=== PATIENT | female | born 1935 | race Caucasian/White ===

== ENCOUNTER 2021-08-03 09:21 | Observation (INO) | payer MEDICARE, OTHER ==
[~2021-08-03] VITALS: Ht 162.6 cm; Wt 79.5 kg
[2021-08-03 11:33] LABS: BASOPHILS % (AUTO) 0.4 % (0.0-5.0); EOSINOPHILS % (AUTO) 1.3 % (0.0-8.0); LYMPHOCYTES % (AUTO) 28.3 % (21.0-51.0); MEAN CORPUSCULAR HEMOGLOBIN 28.4 pg (27.0-33.0); MEAN CORPUSCULAR HGB CONC 31.1 g/dL (32.0-36.0); MEAN CORPUSCULAR VOLUME 91.5 fL (79-99); MONOCYTES % (AUTO) 8.4 % (3.0-13.0); NEUTROPHILS % (AUTO) 61.4 % (40.0-77.0); PLATELET COUNT (AUTO) 254 K/uL (130-400); RED BLOOD CELL COUNT(AUTO) 5.03 MIL/uL (4.00-5.50); WHITE BLOOD COUNT (AUTO) 8.4 K/uL (4.8-10.8)
[2021-08-03 11:34] LABS: APPEARANCE,URINE Clear (CLEAR); BILIRUBIN,URINE Negative (NEGATIVE); COLOR,URINE Yellow (YELLOW); GLUCOSE, URINE (UA) Negative (NEGATIVE); KETONES,URINE Negative (NEGATIVE); LEUKOCYTE ESTERASE ,URINE Moderate (NEGATIVE); NITRATE,URINE Negative (NEGATIVE); OCCULT BLOOD,URINE Negative (NEGATIVE); PROTEIN,URINE Negative (NEGATIVE); UROBILINOGEN,URINE 0.2 mg/dL (0.2-1.0)
[2021-08-03 11:51] LABS: CREATININE 0.8 mg/dL (0.5-1.5); POTASSIUM 4.1 mmol/L (3.5-5.1)
[2021-08-03 12:01] LABS: BACTERIA,URINE Rare /HPF (None Seen); RBC,URINE 0-1 /HPF (0-1); SQUAMOUS EPITHELIAL CELL,UR Rare /HPF (0-2); WBC,URINE 0-1 /HPF (0-1)
[2021-08-03 12:03] LABS: PROTHROMBIN TIME 10.9 SEC (9.6-11.6)
[2021-08-03 12:26] VITALS: BP 120/85
[2021-08-03] MEDS ORDERED: ASCO500C18 PO (12:54)
[2021-08-03] MEDS ORDERED: TYLENOL ARTHRITIS PO (12:54)
[2021-08-03] MEDS ORDERED: LATA7.5D OU (12:54)
[2021-08-03] MEDS ORDERED: POTA-202 PO (12:54)
[2021-08-03] MEDS ORDERED: HYDR12.54 PO (12:54)
[2021-08-03] MEDS ORDERED: CALC1CAP22 PO (12:54)
[2021-08-03] MEDS ORDERED: OMEP40CA21 PO (12:54)
[2021-08-03] MEDS ORDERED: CHOL200013 PO (12:54)
[2021-08-03] MEDS ORDERED: VITAMIN B12 PO (12:54)
[2021-08-03] MEDS ORDERED: PRAV40TA3 PO (12:54)
[2021-08-06] VITALS (18 sets, daily range): BP systolic 123–154; BP diastolic 52–94
[2021-08-06] MEDS ORDERED: CEFAZOLIN SODIUM 1 GM VIAL ONE ×3 (10:00→20:17)
[2021-08-06] MEDS ORDERED: LACTATED RINGERS 1000ML 1,000 ML IV ONE (10:01)
[2021-08-06] MEDS: CEFAZOLIN SODIUM 2 GM VIAL IV SCH ×3 (10:53→18:19)
[2021-08-06] MEDS ORDERED: SUCCINYLCHOLINE CHLORIDE 20 MG/ML 10 ML VIAL ONE (11:54)
[2021-08-06] MEDS ORDERED: SUCCINYLCHOLINE 200MG/10ML SYR ONE (11:54)
[2021-08-06] MEDS ORDERED: LIDOCAINE PF 100MG/5ML (2%) SYRINGE 5ML ONE (11:54)
[2021-08-06] MEDS ORDERED: PROPOFOL 10 MG/ML 20ML VIAL IV ONE (11:56)
[2021-08-06] MEDS ORDERED: GLYCOPYRROLATE 1 MG/5 ML SYRINGE ONE (11:56)
[2021-08-06] MEDS ORDERED: ONDANSETRON 4MG INJ ONE (11:56)
[2021-08-06] MEDS ORDERED: NEOSTIGMINE 5MG/5ML SYR IV ONE (11:56)
[2021-08-06] MEDS ORDERED: ROCURONIUM 10MG/1ML SYR 10 MG/ML ML ONE (11:56)
[2021-08-06] MEDS ORDERED: MIDAZOLAM HCL 1 MG/ML 2ML VIAL ONE (11:56)
[2021-08-06] MEDS ORDERED: DEXAMETHASONE SOD PHOSPHATE 10MG/ML 1ML VIAL ONE (11:56)
[2021-08-06] MEDS ORDERED: FENTANYL CITRATE PF 50 MCG/1 ML 2ML VIAL ONE ×2 (11:57→16:19)
[2021-08-06] MEDS ORDERED: TRANEXAMIC ACID 1000MG/10ML ONE ×2 (14:02→17:13)
[2021-08-06] MEDS ORDERED: EPHEDRINE SULFATE 50 MG/ML AMPULE ONE (14:36)
[2021-08-06] MEDS ORDERED: MEPERIDINE-PF 25 MG/ML SYG ONE (15:27)
[2021-08-06] MEDS: ACETAMINOPHEN 500 MG TABLET PO SCH ×2 (16:30→23:49)
[2021-08-06] MEDS ORDERED: CALCIUM CARB 500MG PO PRN (16:30)
[2021-08-06] MEDS ORDERED: TEMAZEPAM 15 MG CAPSULE PO PRN (16:30)
[2021-08-06] MEDS ORDERED: POTASSIUM CHLORIDE 10% ELIXIR 20 MEQ/15 ML UDCUP PO PRN (16:30)
[2021-08-06] MEDS ORDERED: TRAMADOL HCL 50 MG TABLET PO PRN (16:30)
[2021-08-06] MEDS ORDERED: KCL 20 MEQ ERTAB PO PRN (16:30)
[2021-08-06] MEDS ORDERED: ONDANSETRON 4MG INJ IVP PRN (16:30)
[2021-08-06] MEDS ORDERED: FERROUS FUMARATE 324 MG TABLET PO PRN (16:30)
[2021-08-06] MEDS ORDERED: DiphenhydrAMINE HCL 50 MG/ML VIAL IVP PRN (16:30)
[2021-08-06] MEDS ORDERED: POTASSIUM CHLORIDE 20MEQ/100ML 100 ML IV PRN (16:30)
[2021-08-06] MEDS ORDERED: 0.9%NACL 1000ML 1,000 ML IV SCH (16:30)
[2021-08-06] MEDS ORDERED: LIDOCAINE HCL-MPF 1% 2ML VIAL IV PRN (16:30)
[2021-08-06] MEDS ORDERED: KETOROLAC 15MG/ML VIAL (15MG/ML) IV PRN (16:30)
[2021-08-06] MEDS: MEPERIDINE-PF 25 MG/ML SYG ONE ×2 (17:22→17:35)
[2021-08-06] MEDS: OXYCODONE HCL 5 MG TAB PO PRN (18:33)
[2021-08-06] MEDS: PREGABALIN 25 MG CAP PO SCH (20:38)
[2021-08-06] MEDS: CELECOXIB 200 MG CAP PO SCH (20:38)
[2021-08-06] MEDS: ASPIRIN 81 MG EC TAB PO SCH (20:38)
[2021-08-06] MEDS: CEFAZOLIN SODIUM 1 GM VIAL IVP SCH (20:39)
[2021-08-06] MEDS: LATANOPROST 2.5 ML DROPS OU SCH (21:28)
[2021-08-07] VITALS (8 sets, daily range): BP systolic 96–125; BP diastolic 42–61
[2021-08-07] MEDS: CEFAZOLIN SODIUM 2 GM VIAL IV SCH ×2 (04:24→18:18)
[2021-08-07] MEDS: CEFAZOLIN SODIUM 1 GM VIAL IVP SCH (05:04)
[2021-08-07 05:43] LABS: HEMATOCRIT 35.9 % (36-48); MEAN CORPUSCULAR HEMOGLOBIN 28.8 pg (27.0-33.0); MEAN CORPUSCULAR HGB CONC 32.3 g/dL (32.0-36.0); MEAN CORPUSCULAR VOLUME 89.1 fL (79-99); RED BLOOD CELL COUNT(AUTO) 4.03 MIL/uL (4.00-5.50); RED CELL DISTRIBUTION WIDTH 12.6 % (11.0-15.5); WHITE BLOOD COUNT (AUTO) 13.8 K/uL (4.8-10.8)
[2021-08-07 05:51] LABS: CREATININE 0.9 mg/dL (0.5-1.5); POTASSIUM 3.9 mmol/L (3.5-5.1)
[2021-08-07] MEDS: KCL 20 MEQ ERTAB PO SCH (08:48)
[2021-08-07] MEDS: CYANOCOBALAMIN (VITAMIN B-12) 1,000 MCG TABLET PO SCH (08:48)
[2021-08-07] MEDS: CELECOXIB 200 MG CAP PO SCH ×2 (08:48→20:44)
[2021-08-07] MEDS: PANTOPRAZOLE 40 MG TAB DR PO SCH (08:48)
[2021-08-07] MEDS: ATORVASTATIN 10 MG TABLET PO SCH (08:48)
[2021-08-07] MEDS: PREGABALIN 25 MG CAP PO SCH (08:48)
[2021-08-07] MEDS: ASPIRIN 81 MG EC TAB PO SCH ×2 (08:49→20:44)
[2021-08-07] MEDS: ASCORBIC ACID 500 MG TAB PO SCH (08:49)
[2021-08-07] MEDS: ACETAMINOPHEN 500 MG TABLET PO SCH ×3 (08:50→23:50)
[2021-08-07] MEDS: POLYETHYLENE GLYCOL 3350 17 GM POWD.PACK PO SCH (08:50)
[2021-08-07] MEDS: CALCIUM CARB 500MG CHEW TAB PO SCH (09:00)
[2021-08-07] MEDS: **HM**(Vitamin D3) (Vitamin D3) 50 MCG) PO SCH (09:00)
[2021-08-07] MEDS ORDERED: 0.9%NACL 1000ML 1,000 ML IV ONE (13:59)
[2021-08-07] MEDS ORDERED: 0.9% NACL 500ML IV.SOLN 500 ML IV PRN (14:00)
[2021-08-07] MEDS: LATANOPROST 2.5 ML DROPS OU SCH (20:44)
[2021-08-07] MEDS: OXYCODONE HCL 5 MG TAB PO PRN (23:50)
[2021-08-08 04:44] VITALS: BP 110/50
[2021-08-08 07:25] VITALS: BP 137/72
[2021-08-08] MEDS: ACETAMINOPHEN 500 MG TABLET PO SCH ×2 (08:30→13:33)
[2021-08-08] MEDS ORDERED: HYDROCHLOROTHIAZIDE 25 MG TABLET PO SCH (09:00)
[2021-08-08] MEDS: **HM**(Vitamin D3) (Vitamin D3) 50 MCG) PO SCH (09:00)
[2021-08-08] MEDS: CYANOCOBALAMIN (VITAMIN B-12) 1,000 MCG TABLET PO SCH (09:33)
[2021-08-08] MEDS: POLYETHYLENE GLYCOL 3350 17 GM POWD.PACK PO SCH (09:33)
[2021-08-08] MEDS: ATORVASTATIN 10 MG TABLET PO SCH (09:33)
[2021-08-08] MEDS: ASPIRIN 81 MG EC TAB PO SCH (09:33)
[2021-08-08] MEDS: ASCORBIC ACID 500 MG TAB PO SCH (09:33)
[2021-08-08] MEDS: CALCIUM CARB 500MG CHEW TAB PO SCH (09:33)
[2021-08-08] MEDS: PANTOPRAZOLE 40 MG TAB DR PO SCH (09:33)
[2021-08-08] MEDS: CELECOXIB 200 MG CAP PO SCH (09:33)
[2021-08-08] MEDS: OXYCODONE HCL 5 MG TAB PO PRN ×3 (09:34→18:44)
[2021-08-08] MEDS: KCL 20 MEQ ERTAB PO SCH (09:34)
[2021-08-08 11:30] VITALS: BP 128/54
[2021-08-08 15:20] VITALS: BP 120/63
[2021-08-08] MEDS ORDERED: AEC81 PO (16:42)
[2021-08-08] MEDS ORDERED: HYDR-4060 PO (16:42)
[2021-08-09] MEDS ORDERED: BISACODYL 10 MG SUPP.RECT RC PRN (16:30)
== END 2021-08-08 19:39 ==
LOC: EDSTATUS 12:00 → DAHIP 08-06 09:45 → 3BH 08-06 17:58
PROVIDERS: ADMIT Orthopaedic Surgery; ATTEND Orthopaedic Surgery
DX: M17.11 Unilateral primary osteoarthritis, right knee (principal); Z20.822 Contact with and (suspected) exposure to COVID-19; D17.23 Benign lipomatous neoplasm of skin and subcutaneous tissue of right leg; D62 Acute posthemorrhagic anemia; I10 Essential (primary) hypertension; Z98.41 Cataract extraction status, right eye; Z98.42 Cataract extraction status, left eye; Z79.899 Other long term (current) drug therapy
CPT/HCPCS: 27447; 27632; 36415 ×2; 80048 ×2; 81001; 85025; 85027; 85610; 87088; 87635; 87641; 93005; 96374; 96376; 97039 ×3; 97116 ×3; 97161; 97530 ×4; A4649 ×5; A4930 ×2; A9272; C1776; G0378 ×48; G0379; J0330 ×2; J0690 ×4; J1100; J2001; J2175 ×2; J2250; J2405; J2704; J2710; J3010 ×2; J3490 ×4; J7030 ×2; J7120 ×2; 64447; 76942

== ENCOUNTER 2022-01-25 10:00 | Observation (INO) | payer MEDICARE ==
[~2022-01-25] VITALS: Ht 158.8 cm; Wt 76.9 kg
[~2022-01-25 10:00] MED LIST: ASCO500C18 PO; CALC1CAP22 PO; HYDR12.54 PO; LATA7.5D OU; TYLENOL ARTHRITIS PO; VITAMIN B12 PO
[2022-01-25 10:16] LABS: APPEARANCE,URINE CLEAR (CLEAR); BILIRUBIN,URINE NEGATIVE (NEGATIVE); COLOR,URINE YELLOW (YELLOW); GLUCOSE, URINE (UA) NEGATIVE (NEGATIVE); KETONES,URINE NEGATIVE (NEGATIVE); LEUKOCYTE ESTERASE ,URINE SMALL (NEGATIVE); NITRATE,URINE NEGATIVE (NEGATIVE); OCCULT BLOOD,URINE NEGATIVE (NEGATIVE); PROTEIN,URINE NEGATIVE (NEGATIVE); UROBILINOGEN,URINE 0.2 mg/dL (0.2-1.0)
[2022-01-25 10:23] LABS: BACTERIA,URINE Rare /HPF (None Seen); RBC,URINE None Seen /HPF (0-1); TRANSITIONAL EPI CELLS,URINE Few /HPF (None Seen)
[2022-01-25 10:39] VITALS: BP 183/69
[2022-01-25 10:48] LABS: ALBUMIN 3.9 g/dL (3.5-5.0); CRP QUANTITATIVE < 2.00 mg/L (0.00-9.0)
[2022-01-25] MEDS ORDERED: PRAV40TA3 PO (10:53)
[2022-01-25] MEDS ORDERED: POTA20PA32 PO (10:54)
[2022-01-28] VITALS (27 sets, daily range): BP systolic 106–156; BP diastolic 45–96
[2022-01-28] MEDS ORDERED: LIDOCAINE PF 100MG/5ML (2%) SYRINGE 5ML ONE (07:01)
[2022-01-28] MEDS ORDERED: DEXAMETHASONE SOD PHOSPHATE 10MG/ML 1ML VIAL ONE (07:01)
[2022-01-28] MEDS ORDERED: ROCURONIUM 10MG/1ML SYR 10 MG/ML ML ONE (07:02)
[2022-01-28] MEDS ORDERED: FENTANYL CITRATE PF 50 MCG/1 ML 2ML VIAL ONE (07:02)
[2022-01-28] MEDS ORDERED: GLYCOPYRROLATE 1 MG/5 ML SYRINGE ONE (07:02)
[2022-01-28] MEDS ORDERED: PROPOFOL 10 MG/ML 20ML VIAL IV ONE ×2 (07:02→09:49)
[2022-01-28] MEDS ORDERED: NEOSTIGMINE 5MG/5ML SYR IV ONE (07:02)
[2022-01-28] MEDS ORDERED: ROPIVACAINE 0.5% 5MG/ML 30ML IJ ONE ×3 (07:03→08:16)
[2022-01-28] MEDS ORDERED: PHENYLEPHRINE HCL 10 MG/ML 1ML VIAL IV ONE (07:05)
[2022-01-28] MEDS ORDERED: CEFAZOLIN SODIUM 1 GM VIAL ONE (07:10)
[2022-01-28] MEDS ORDERED: LACTATED RINGERS 1000ML 1,000 ML IV ONE (07:10)
[2022-01-28] MEDS ORDERED: DEXAMETHASONE SOD PHOSPHATE 4 MG/ML 1ML VIAL ONE (07:13)
[2022-01-28] MEDS ORDERED: MIDAZOLAM HCL 1 MG/ML 2ML VIAL ONE (07:17)
[2022-01-28] MEDS ORDERED: KETOROLAC 30MG VIAL (30MG/ML) ONE (07:33)
[2022-01-28] MEDS ORDERED: TRANEXAMIC ACID 1000MG/10ML ONE (07:40)
[2022-01-28] MEDS ORDERED: KETOROLAC 30MG VIAL (30MG/ML) IVP ONE (08:16)
[2022-01-28] MEDS ORDERED: CEFAZOLIN SODIUM 2 GM VIAL IV ONE (08:16)
[2022-01-28] MEDS ORDERED: ONDANSETRON 4MG INJ ONE (08:18)
[2022-01-28] MEDS ORDERED: POTASSIUM CHLORIDE 20MEQ/100ML 100 ML IV PRN (09:30)
[2022-01-28] MEDS ORDERED: TRAMADOL HCL 50 MG TABLET PO PRN (09:30)
[2022-01-28] MEDS ORDERED: CALCIUM CARB 500MG PO PRN (09:30)
[2022-01-28] MEDS: KETOROLAC 15MG/ML VIAL (15MG/ML) IV SCH ×3 (09:30→21:25)
[2022-01-28] MEDS ORDERED: KCL 20 MEQ ERTAB PO PRN (09:30)
[2022-01-28] MEDS ORDERED: CYCLOBENZAPRINE HCL 10 MG TABLET PO PRN (09:30)
[2022-01-28] MEDS ORDERED: ONDANSETRON 4MG INJ IVP PRN (09:30)
[2022-01-28] MEDS ORDERED: POTASSIUM CHLORIDE 10% ELIXIR 20 MEQ/15 ML UDCUP PO PRN (09:30)
[2022-01-28] MEDS ORDERED: FERROUS FUMARATE 324 MG TABLET PO PRN (09:30)
[2022-01-28] MEDS ORDERED: LIDOCAINE HCL-MPF 1% 2ML VIAL IV PRN (09:30)
[2022-01-28] MEDS ORDERED: MEPERIDINE-PF 25 MG/ML SYG ONE (10:22)
[2022-01-28] MEDS: GABAPENTIN 100 MG CAPSULE PO SCH ×2 (14:06→21:24)
[2022-01-28] MEDS: CEFAZOLIN SODIUM 1 GM VIAL IVP SCH ×2 (14:06→21:25)
[2022-01-28] MEDS: 0.9%NACL 1000ML 1,000 ML IV SCH ×2 (14:07→18:32)
[2022-01-28] MEDS: HYDROCODONE/ACETAMINOPHEN 5/325 MG TAB PO PRN (14:09)
[2022-01-28] MEDS ORDERED: POTA-202 PO (20:25)
[2022-01-28] MEDS ORDERED: PRAVASTATIN 40MG PO SCH (21:00)
[2022-01-28] MEDS ORDERED: NON-FORMULARY MEDICATION 1 EACH (Pravastatin Sodium 40 MG) PO SCH (21:00)
[2022-01-28] MEDS ORDERED: LATANOPROST 2.5 ML DROPS OU SCH (21:00)
[2022-01-28] MEDS ORDERED: NON-FORMULARY MEDICATION 1 EACH (Latanoprost/Pf (Latanoprost 0.005% Eye Drop) 1 DROP) OU SCH (21:00)
[2022-01-28] MEDS: DOCUSATE SODIUM 100 MG CAP PO SCH (21:23)
[2022-01-29] MEDS: KETOROLAC 15MG/ML VIAL (15MG/ML) IV SCH (03:40)
[2022-01-29] MEDS: 0.9%NACL 1000ML 1,000 ML IV SCH (04:15)
[2022-01-29 04:16] VITALS: BP 111/58
[2022-01-29 04:16] LABS: HEMATOCRIT 34.2 % (36-48); MEAN CORPUSCULAR VOLUME 87.9 fL (79-99); RED BLOOD CELL COUNT(AUTO) 3.89 MIL/uL (4.00-5.50); RED CELL DISTRIBUTION WIDTH 13.9 % (11.0-15.5); WHITE BLOOD COUNT (AUTO) 13.2 K/uL (4.8-10.8)
[2022-01-29 04:23] LABS: POTASSIUM 3.7 mmol/L (3.5-5.1)
[2022-01-29 07:57] VITALS: BP 109/54
[2022-01-29] MEDS: GABAPENTIN 100 MG CAPSULE PO SCH ×2 (08:13→15:08)
[2022-01-29] MEDS: DOCUSATE SODIUM 100 MG CAP PO SCH ×2 (08:13→09:00)
[2022-01-29] MEDS: POLYETHYLENE GLYCOL 3350 17 GM POWD.PACK PO SCH ×2 (08:14→09:00)
[2022-01-29] MEDS: HYDROCODONE/ACETAMINOPHEN 5/325 MG TAB PO PRN ×2 (08:16→17:08)
[2022-01-29] MEDS ORDERED: [UNRECOGNIZED DRUG - OTHER] PO SCH (09:00)
[2022-01-29] MEDS ORDERED: KCL 20 MEQ ERTAB PO SCH (09:00)
[2022-01-29] MEDS ORDERED: ASPIRIN 325MG TAB PO SCH (09:00)
[2022-01-29] MEDS ORDERED: CA 600MG+VIT D 400 UNIT TAB 1 TAB TABLET PO SCH (09:00)
[2022-01-29] MEDS ORDERED: CALCIUM CARBONATE PO SCH (09:00)
[2022-01-29] MEDS ORDERED: VITAMIN B12 1000 MG PO SCH (09:00)
[2022-01-29] MEDS ORDERED: VITAMIN D3 PO SCH (09:00)
[2022-01-29] MEDS ORDERED: NON-FORMULARY MEDICATION 1 EACH (Ascorbic Acid (Vitamin C) 500 MG) PO SCH (09:00)
[2022-01-29] MEDS ORDERED: CYANOCOBALAMIN (VITAMIN B-12) 1,000 MCG TABLET PO SCH (09:00)
[2022-01-29] MEDS ORDERED: ASCORBIC ACID 500 MG TAB PO SCH (09:00)
[2022-01-29 11:34] VITALS: BP 100/47
[2022-01-29 16:24] VITALS: BP 108/43
[2022-01-30] MEDS ORDERED: NON-FORMULARY MEDICATION 1 EACH (Hydrochlorothiazide 12.5 MG) PO SCH (09:00)
[2022-01-30] MEDS ORDERED: HYDROCHLOROTHIAZIDE 25 MG TABLET PO SCH (09:00)
[2022-01-31] MEDS ORDERED: BISACODYL 10 MG SUPP.RECT RC PRN (09:30)
== END 2022-01-29 18:00 | disposition home health service (06) ==
LOC: OBSVTOIN 01-28 06:52 → INTOOBSV 01-28 06:52 → DAHIP 01-28 06:52 → EDSTATUS 01-28 10:00 → 4AH 01-28 10:42
PROVIDERS: ADMIT Student in an Organized Health Care Education/Training Program; ATTEND Student in an Organized Health Care Education/Training Program
DX: M17.12 Unilateral primary osteoarthritis, left knee (principal); Z20.822 Contact with and (suspected) exposure to COVID-19; I10 Essential (primary) hypertension; M23.8X2 Other internal derangements of left knee; Z79.82 Long term (current) use of aspirin; Z96.651 Presence of right artificial knee joint; Z79.899 Other long term (current) drug therapy
CPT/HCPCS: 82040; 87088; 84134; 86140; 87426; 81001; 36415 ×2; 93005; 87641; 27447; 96374; 96376 ×2; 96375; 73560; 97161; 97039 ×3; 80048; 85027; 97116 ×2; 97530 ×2; J1100 ×2; G0378 ×34; J7120 ×2; A4215 ×2; A4600; J0690 ×4; J3010; J3490 ×2; J2710; J2001; J2250; J2704 ×2; J2405; J1885 ×5; J2175; J2795 ×3; J2370; G0168; A4649 ×3; A4930 ×2; C1776; A6255; A5120; A4223; A4222; A4221; A4663; J7030

== ENCOUNTER 2024-08-03 21:28 | Emergency (ER) | payer MEDICARE ==
[~2024-08-03] VITALS: Ht 162.6 cm; Wt 77.6 kg
[~2024-08-03 21:28] MED LIST changes: +POTA-202 PO; +PRAV40TA3 PO; -TYLENOL ARTHRITIS PO
[2024-08-03 21:38] VITALS: BP 183/96; PULSE 80; RESP 20; TEMP 98.2
[2024-08-03] MEDS ORDERED: MELO-108 PO (22:35)
[2024-08-03] MEDS ORDERED: ACET-2079 PO (22:35)
--- NOTE | 2024-08-03 22:37 | ERN ---
General Chief Complaint: Muscle Spasm Stated Complaint: BACK PAIN,MUSCLE SPASMS History of Present Illness Initial Comments 88-year-old female who presents for right lower back pain. Patient reports two days pain. She reports that she was using it while gardening a couple of days ago, and she thinks she over did it. It is positional type pain in the right lower back. It is nonradiating. Severe with certain positions. She has no other symptoms such as fevers, nausea, vomiting, or urinary symptoms. No abdominal pain or discomfort. She reports that it feels like musculoskeletal pain. She has been taking 1000 mg of Tylenol a couple times a day with only minimal relief. No neurologic compromise. She was ambulatory. Allergies: Coded Allergies: No Known Drug Allergies (Verified Allergy, Unknown, 08/03/21) Sulfa (Sulfonamide Antibiotics) (Unverified Allergy, Unknown, 01/28/22) doxycycline (Unverified Allergy, Unknown, 01/28/22) hydrocodone (Unverified Allergy, Unknown, 01/28/22) Home Meds Reported Medications Potassium Chloride (Potassium Chloride) 20 Meq Tab.er.prt, 1 TAB PO DAILY 01/28/22 Pravastatin Sodium (Pravastatin Sodium) 40 Mg Tablet, 40 MG PO HS, TAB 01/25/22 [Vitamin B12] No Conflict Check, 1000 MG PO DAILY 08/03/21 Hydrochlorothiazide (Hydrochlorothiazide) 12.5 Mg Tablet, 12.5 MG PO QODAY, TAB 08/03/21 Calcium Carbonate/Vitamin D3 (Calcium 600 + Vit D 400 Softgl) 1 Each Capsule, 1 EACH PO DAILY, CAP 08/03/21 Latanoprost/Pf (Latanoprost 0.005% Eye Drop) 7.5 Ml Drops, 1 DROP OU HS, DROP 08/03/21 Ascorbic Acid (Vitamin C) 500 Mg Capsule, 500 MG PO DAILY, CAP 08/03/21 Past Medical History Past Medical History: High Cholesterol, Hypertension, Other Medical History Other: HX OF GASTRITIS Past Surgical History: Other Surgical History Other: BILATERAL KNEE REPLACEMENT ROS Dictation CONSTITUTIONAL: No chills, no fever, no weakness, no diaphoresis, no malaise. HEAD/FACE: No signs of trauma. EENT: No eye pain, no blurred vision, no tearing, no double vision, no ear pain, no ear discharge, no nose pain, no nasal congestion, no throat pain, no throat swelling, no mouth pain. RESPIRATORY: No cough, no orthopnea, no SOB, no stridor, no wheezing. CARDIOVASCULAR: No chest pain, no edema, no palpitations, no syncope. GASTROINTESTINAL/ABDOMINAL: No abdominal pain, no constipation, no diarrhea, no nausea, no vomiting. GENITOURINARY: No abnormal discharge, no dysuria, no frequent urination, no hematuria. No complaints of pain in the genitals. MUSCULOSKELETAL: Right hip pain INTEGUMENTARY: No change in color, no change in hair/nails, no dryness, no lesion, no lumps, no rash. NEUROLOGICAL/PSYCH: No anxiety, not depressed, no emotional problem, no headache, no numbness, no pre-existing deficit, no history of seizures, no tremors, no weakness. HEMATOLOGIC/LYMPHATIC: Not anemic, no history of blood clots, no apparent bleeding, no bruising, glands not swollen. All Systems Negative, Except as Noted. Physical Exam Physical Exam Dictation VITAL SIGNS: Reviewed. GENERAL APPEARANCE: Alert, oriented x3, no acute distress HEAD AND FACE: Non-traumatic. EYES: PERRL, pink conjunctivas, eyelid no trauma, anterior chamber clear. EARS: Pinnas intact and no signs of trauma or erythema. Ear canals clear and no discharge. TMs no erythema. NOSE: No discharge, no bleeding. OROPHARYNX: Mouth normal, teeth no caries, tongue pink. Pharynx clear, no erythema. Tonsils no exudates, no abscesses noted. Mucous membrane moist. NECK: Supple, non-tender, no thyromegaly, no masses, no JVD, no bruits. BREAST: Deferred. CHEST: No tenderness, no crepitus, no paradoxical movement, no retractions. LUNGS: Clear, well-ventilated, symmetric, no rales, no wheezing, no rhonchi, no stridor, good breath sounds bilaterally. HEART: Regular rate, regular rhythm, no murmur, no gallops. VASCULAR: No peripheral edema. ABDOMEN: Soft, positive bowel sounds, nondistended, no guarding, nontender, no rebound, no masses no hepatomegaly, no splenomegaly, no Hawkins's sign, no hernias. RECTAL: Deferred. GENITAL: Deferred. NEUROLOGICAL: Normal speech, gross motor function intact, gross sensory function intact. MUSCULOSKELETAL: Neck nontender, full range of motion, back nontender, full range of motion. EXTREMITIES: Nontender, full range of motion. SKIN: Color pink, dry, no turgor, no rash, no lacerations, no abrasions, no contusions. LYMPHATICS: Deferred. MDM CC: Right lower back pain Historian: Patient Comorbidities: Advanced age Limitations by social determinants of health: None Differential diagnosis: Flank pain, kidney disease, musculoskeletal pain, fracture, hip discomfort, bony injury, other. Vital signs are stable On clinical exam she has a minimal tenderness to the right lower back. She was ambulatory full range of motion. Neurovascularly intact. There was no midline pain or discomfort. Pain is located in the back of the posterior iliac crest on palpation. She has no urinary symptoms, I did discuss with her whether this is urinary in nature, she denies any symptoms and reports that she feels like this is musculoskeletal in nature X-ray of the right hip per my independent interpretation shows no fractures or bony injury. Patient received IM Toradol and p.o. Ferris in the ER. We will discharge the patient with T threes and meloxicam and symptomatic support. Likely musculoskeletal in nature. No indication for admission at this time. She was ambulatory and he was good follow up as an outpatient. ED Course Orders Procedure Category Date Status Time Acetaminophen With PHA 08/03/24 Logged Codeine (Tylenol-Code 22:00 Hip Unilat 2-3vw Right RAD 08/03/24 Taken 21:57 Ketorolac PHA 08/03/24 Complete Tromethamine 15mg/Ml 22:30 Current Medications Medications (Trade) Dose Ordered Sig/Tenzin Route PRN Reason Start Time Stop Time Status Last Admin Dose Admin Acetaminophen/ Codeine Phosphate (TYLenol-coDEINE TAB) 1 tab ONCE ONCE PO 08/03/24 22:00 08/03/24 22:01 UNV Ketorolac Tromethamine (toRADol) 15 mg ONCE ONCE IM 08/03/24 22:30 08/03/24 22:31 DC Vital Signs Date Time Temp Pulse Resp B/P (MAP) Pulse Ox O2 Delivery O2 Flow Rate FiO2 08/03/24 21:38 98.2 80 20 183/96 97 Room Air DX & DISP Disposition: Discharge Departure Impression: Primary Impression: Pain of back and right lower extremity Additional Impression: Musculoskeletal pain Condition: Stable Scripts Meloxicam (Meloxicam) 15 Mg Tablet 15 MG PO DAILY PRN for PAIN for 10 Days, #10 TAB Prov: ALEKS BALLARD DO 08/03/24 Acetaminophen with Codeine (Acetaminophen-Cod #3 Tablet) 300 Mg-30 Mg Tablet 1 TAB PO Q6HPRN PRN for pain for 7 Days, #28 TAB 0 Refills Prov: ALEKS BALLARD DO 08/03/24 Additional Instructions: Your symptoms are consistent with musculoskeletal type pain. The x-rays do not show any acute or major abnormalities. I have prescribed meloxicam, which is a nonsteroidal anti-inflammatory pain medication. You can take this once per day. Do not mix this medication with ibuprofen naproxen, or other NSAIDs. Prescribed Tylenol with codeine. I recommend that take one of these tabs with an extra strength (500 mg) Tylenol. You can combine these medications and take this combination up to 4 times a day as needed. I recommend use lidocaine patches over the affected area. These medications are [id number]. I recommend [id number]-[id number] creams such as Voltaren gel or capsaicin cream. You can apply this frequently throughout the day. You can also alternate heat with a heating pad and: Ice as needed. I recommend that you follow up with your primary doctor in three days if you continue with symptoms for re-evaluation. Please return to the emergency you have concerns. Referrals: PABLO SAUCEDA MD (PCP) ALEKS BALLARD DO Aug 03, 2024 22:37
[2024-08-03] MEDS: acetaMINOPHEN WITH coDEINE 1 TAB TAB PO ONE (23:18)
[2024-08-03] MEDS: ketOROlac 15MG/ML VIAL (15MG/ML) IM ONE (23:19)
[2024-08-03] MEDS: LIDOCAINE 4% ADH..PATCH TP ONE (23:19)
--- NOTE | 2024-08-04 08:26 | HMCIMG ---
Exam: He AP pelvis and right hip 3 views Reason: Hip pain. FINDINGS: There are some small calcified fibroids in the pelvis. Bones appear unremarkable. There is mild bilateral hip joint space narrowing consistent with early osteoarthritis. Additional views of the right hip show no fracture or focal osseous abnormality. Soft tissues are otherwise unremarkable. IMPRESSION: 1. Moderate bilateral hip joint space narrowing consistent with a component of osteoarthritis. 2. No acute finding.
== END 2024-08-04 | disposition home or self-care (01) ==
LOC: EDH 21:28
DX: M54.50 Low back pain, unspecified (principal); M79.661 Pain in right lower leg; M79.18 Myalgia, other site; E78.00 Pure hypercholesterolemia, unspecified; I10 Essential (primary) hypertension; Z79.899 Other long term (current) drug therapy; Z88.1 Allergy status to other antibiotic agents; Z88.2 Allergy status to sulfonamides; Z88.5 Allergy status to narcotic agent; Z96.653 Presence of artificial knee joint, bilateral
CPT/HCPCS: 99283; 73502; 96372; J1885

== ENCOUNTER → 2024-10-01 | Outpatient (CLI) | payer MEDICARE ==
[~2024-10-01] MED LIST changes: +ACET-2079 PO; +MELO-108 PO
--- NOTE | 2024-10-01 10:38 | HMCIMG ---
ULTRASOUND ABDOMEN COMPLETE INDICATION: Cholelithiasis COMPARISON: None. FINDINGS: The liver is normal in size and echogenicity; 1.5 cm simple left hepatic lobe cyst and 1.5 cm simple right hepatic lobe cyst demonstrated. Main portal vein is patent, and normal direction of vascular flow demonstrated. The common bile duct caliber measures 3.0 mm. A couple of large echogenic shadowing stones within the gallbladder lumen without associated pericholecystic fluid. No sonographic Hawkins's sign elicited by the ultrasound pneumatic system conveyor operator. Wall thickness measures 1.0 mm. The spleen is normal in size and echotexture. The spleen measures 9.5 cm. Visible portions of the pancreas appear unremarkable. The right kidney measures 9.3 x 3.2 x 4.2 cm,and is normal in echogenicity, without evidence for hydronephrosis or shadowing stones. The left kidney measures 9.0 x 6.0 x 4.4 cm, without evidence for hydronephrosis or shadowing stones. 8.4 x 10.0 x 7.1 cm heterogeneously anechoic vascular mass with irregular borders demonstrated within the left kidney. Visible portions of the abdominal aorta are within normal limits. Visible portions of the inferior vena cava are within normal limits. No free fluid demonstrated. IMPRESSION: 10.0 cm left renal neoplasm suggesting renal cell carcinoma. Cholelithiasis.
== END | disposition home or self-care (01) ==
LOC: RAH 09:00
PROVIDERS: ATTEND Family Medicine
DX: C64.2 Malignant neoplasm of left kidney, except renal pelvis (principal); K80.20 Calculus of gallbladder without cholecystitis without obstruction; K76.89 Other specified diseases of liver; N28.89 Other specified disorders of kidney and ureter
CPT/HCPCS: 76700

== ENCOUNTER → 2024-11-11 | Outpatient (CLI) | payer MEDICARE ==
--- NOTE | 2024-11-11 12:34 | HMCIMG ---
NM GASTRIC EMPTYING STUDY REASON: ABDOMINAL DISTENSION. COMPARISON: None TECHNIQUE: Nuclear gastric emptying study was performed with 1.5 mCi of technetium tagged sulfur colloid with scrambled eggs through oral route. FINDINGS: T half of gastric emptying is 80 minutes. IMPRESSION: Normal gastric emptying with T half of 80 minutes.
== END | disposition home or self-care (01) ==
LOC: RAH 07:22
PROVIDERS: ATTEND Surgery
DX: K21.9 Gastro-esophageal reflux disease without esophagitis (principal); K80.20 Calculus of gallbladder without cholecystitis without obstruction; R14.0 Abdominal distension (gaseous); K44.9 Diaphragmatic hernia without obstruction or gangrene
CPT/HCPCS: 78264; A9541